=== PATIENT | female | born 2005 | race Caucasian/White ===

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

== ENCOUNTER 2023-08-13 09:36 | Day surgery (SDC) | payer BC, MEDICAID, OTHER ==
[~2023-08-13 09:36] MED LIST: Sodium Chloride 0.9% 10 ML Syringe FLUSH PRN; Sodium Chloride 0.9% 2.5 ML Syringe FLUSH PRN; Sodium Chloride 0.9% 20 ML SDV IV PRN
[2023-08-13] MEDS: Lactated Ringers 1,000 ML IV SCH (10:19)
[2023-08-13] MEDS ORDERED: propofoL 50 ML ONE (10:58)
== END 2023-08-13 11:35 | disposition home or self-care (01) ==
LOC: MW.SDS 09:36
PROVIDERS: ATTEND Surgery
DX: K59.09 Other constipation (principal); F32.A Depression, unspecified; Z79.899 Other long term (current) drug therapy
CPT/HCPCS: 45380; 81025; J2704; J7120; 00811

== ENCOUNTER 2024-12-27 22:47 | Emergency (ER) | payer BC, OTHER ==
[2024-12-28] MEDS: Tetracaine HCl/PF 0.5% 4 ML Bottle EYEBOTH ONE (00:20)
[2024-12-28] MEDS: Fluorescein 1 MG Ophth Strip EYEBOTH ONE (00:20)
[2024-12-28] MEDS: Loratadine 10 MG Tab PO ONE (01:19)
[2024-12-28] MEDS: Dexamethasone 4 MG Tab PO ONE (01:19)
== END 2024-12-28 01:25 | disposition home or self-care (01) ==
LOC: MW.ED 22:47
DX: H10.9 Unspecified conjunctivitis (principal); F17.200 Nicotine dependence, unspecified, uncomplicated; Z88.0 Allergy status to penicillin; Z88.8 Allergy status to other drugs, medicaments and biological substances; Z79.899 Other long term (current) drug therapy; Z75.3 Unavailability and inaccessibility of health-care facilities
CPT/HCPCS: 99283; A9270; J8540; J3490